=== PATIENT | male | born 1945 | race Caucasian/White ===

== ENCOUNTER 2025-10-10 15:58 | Emergency (ER) | payer BC, SELFPAY ==
[2025-10-10] VITALS (8 sets, daily range): BP systolic 123–149; BP diastolic 75–91; BMI 25.2
[2025-10-10 16:44] LABS: Hematocrit 39.7 % (39.0-52.0); Hemoglobin 13.1 g/dL (13.0-18.0); Mean Corp Hgb Conc. 33.0 g/dL (33.0-37.0); Mean Corpuscular Volume 73.4 fL (80.0-94.0); Nucleated Red Blood Cells % 0 % (-); Platelet Count 254 10^3/uL (130-400); Red Cell Dist. Width 17.8 % (11.5-14.5)
[2025-10-10 16:56] LABS: Blood Urea Nitrogen 31 mg/dl (9-20); Calcium 7.3 mg/dl (8.4-10.2); Carbon Dioxide 22 mmol/L (22-30); Chloride 100 mmol/L (98-107); Estimated Creatinine Clearance 81 ml/min; Glucose 115 mg/dl (70-99); Sodium 134 mmol/L (135-145); eGFR > 60.00
--- NOTE | 2025-10-10 17:31 | ED.GENMED ---
History of Present Illness
<Foster Gill PA-C - Last Filed: 10/10/25 21:15>
General
Chief Complaint: Weakness
Source: patient
Exam Limitations: none
Time Seen by Provider: 10/10/25 17:11
History of Present Illness
History of Present Illness:
79-year-old male presents with generalized weakness. 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 He was receiving a treatment at [facility]. 2 days ago, he had a left lung thoracentesis of which 2 L was drained from his lung. He
was due to have the right lung drained this coming Wednesday. He was at home and fell and spent the night on the floor. Family was there and could not get him off the floor. He complains of mid back pain from a different fall earlier this week. He
does not take anticoagulants. He does not think he hit his head. His main complaint is generalized weakness and thirst.
Phy Exam
<Foster Gill PA-C - Last Filed: 10/10/25 21:15>
Physical Exam
Physical Exam:
General: Well-appearing male no acute respiratory distress HEENT: Normal cephalic atraumatic heart: Tachycardic but regular
Lungs: Clear no wheeze
Abdomen is soft nontender
Musculoskeletal exam: Mild tenderness about the mid back
Extremities: No cyanosis or edema
Skin: Dry patches of skin over the feet and lower legs. Abrasion noted to the anterior left knee.
Course
<Foster Gill PA-C - Last Filed: 10/10/25 21:15>
Orders/Labs/Results
Orders:
Orders
10/10/25
Comprehensive Metabolic Panel Urgent
Urinalysis Reflex To Culture Urgent
Date Specimen was Collected: 10/10/25
Time Specimen was Collected: 17:29
Urine Microscopic Reflex Cult Urgent
Urine Culture Urgent
YVONNE Source: U
Specimen Description:
Date Specimen was Collected: 10/10/25
Time Specimen was Collected: 17:29
10/10/25 16:02
EKG [Electrocardiogram (*1)] Urgent
Reason for Study: Tachycardia
EKG- Treatment ONCE
10/10/25 16:29
Basic Metabolic Panel Urgent
Complete Blood Count/With Diff Urgent
Creatine [Creatine Phosphokinase] Urgent
10/10/25 17:24
CT Chest W/o Iv Contrast Urgent
Comment:
Reason For Exam: fall, mid back pain, h/o lung CA, effusions
0.9% Sodium Chloride 1000 ml [Nss] 1,000 ml IV BOLUS
10/10/25 17:25
CT Head W/o Iv Contrast Urgent
Comment:
Reason For Exam: fall
10/10/25 20:49
CT Cervical Spine W/o Iv Contr Urgent
Comment:
Reason For Exam: fall
Abnormal Lab Results
10/10/25 10/10/25
16:29 Unknown
MCV 73.4 L fL
(80.0-94.0)
MCH 24.2 L pg
(27.0-31.0)
RDW 17.8 H %
(11.5-14.5)
Abs Immat Gran (auto) 0.1 H 10^3/uL
(0-0.05)
Absolute Neuts (auto) 8.0 H 10^3/uL
(1.4-6.5)
Absolute Lymphs (auto) 0.7 L 10^3/uL
(1.2-3.4)
Absolute Monos (auto) 1.1 H 10^3/uL
(0.1-0.6)
Immature Gran % 0.6 H %
(0-0.5)
Neutrophils % 81.6 H %
(42.2-75.2)
Lymphocytes % 6.7 L %
(20.5-51.1)
Monocytes % 10.8 H %
(1.7-9.3)
Sodium 134 L mmol/L 134 L mmol/L
(135-145) (135-145)
Carbon Dioxide 21 L mmol/L
(22-30)
BUN 31 H mg/dl 30 H mg/dl
(9-20) (9-20)
Glucose 115 H mg/dl 111 H mg/dl
(70-99) (70-99)
Calcium 7.3 L mg/dl 7.4 L mg/dl
(8.4-10.2) (8.4-10.2)
Creatine Kinase 1087 H U/L
(55-170)
Urine Ketones 3+ A
(Negative)
Urine Bacteria (Reflex) Moderate A
(Negative)
Urine Albumin (Reflex) 3+ A
(Neg - Trace)
10/10/25 16:29
10/10/25 Unknown
Vital Signs
Initial and Last Documented VS:
Initial Vital Signs
Pulse Resp BP
116 17 147/91
10/10/25 16:02 10/10/25 16:02 10/10/25 16:02
Last Documented Vital Signs
Temp Pulse Resp BP Pulse Ox
99.8 F 98 23 132/85 98
10/10/25 16:03 10/10/25 20:51 10/10/25 20:51 10/10/25 20:51 10/10/25 20:30
<Satya Patterson MD - Last Filed: 10/10/25 20:57>
Orders/Labs/Results
Orders:
Orders
10/10/25
Comprehensive Metabolic Panel Urgent
Urinalysis Reflex To Culture Urgent
Date Specimen was Collected: 10/10/25
Time Specimen was Collected: 17:29
Urine Microscopic Reflex Cult Urgent
Urine Culture Urgent
YVONNE Source: U
Specimen Description:
Date Specimen was Collected: 10/10/25
Time Specimen was Collected: 17:
10/10/25 16:02
EKG [Electrocardiogram (*1)] Urgent
Reason for Study: Tachycardia
EKG- Treatment ONCE
10/10/25 16:29
Basic Metabolic Panel Urgent
Complete Blood Count/With Diff Urgent
Creatine [Creatine Phosphokinase] Urgent
10/10/25 17:24
CT Chest W/o Iv Contrast Urgent
Comment:
Reason For Exam: fall, mid back pain, h/o lung CA, effusions
0.9% Sodium Chloride 1000 ml [Nss] 1,000 ml IV BOLUS
10/10/25 17:25
CT Head W/o Iv Contrast Urgent
Comment:
Reason For Exam: fall
10/10/25 20:49
CT Cervical Spine W/o Iv Contr Urgent
Comment:
Reason For Exam: fall
Abnormal Lab Results
10/10/25 10/10/25
16:29 Unknown
MCV 73.4 L fL
(80.0-94.0)
MCH 24.2 L pg
(27.0-31.0)
RDW 17.8 H %
(11.5-14.5)
Abs Immat Gran (auto) 0.1 H 10^3/uL
(0-0.05)
Absolute Neuts (auto) 8.0 H 10^3/uL
(1.4-6.5)
Absolute Lymphs (auto) 0.7 L 10^3/uL
(1.2-3.4)
Absolute Monos (auto) 1.1 H 10^3/uL
(0.1-0.6)
Immature Gran % 0.6 H %
(0-0.5)
Neutrophils % 81.6 H %
(42.2-75.2)
Lymphocytes % 6.7 L %
(20.5-51.1)
Monocytes % 10.8 H %
(1.7-9.3)
Sodium 134 L mmol/L 134 L mmol/L
(135-145) (135-145)
Carbon Dioxide 21 L mmol/L
(22-30)
BUN 31 H mg/dl 30 H mg/dl
(9-20) (9-20)
Glucose 115 H mg/dl 111 H mg/dl
(70-99) (70-99)
Calcium 7.3 L mg/dl 7.4 L mg/dl
(8.4-10.2) (8.4-10.2)
Creatine Kinase 1087 H U/L
(55-170)
Urine Ketones 3+ A
(Negative)
Urine Bacteria (Reflex) Moderate A
(Negative)
Urine Albumin (Reflex) 3+ A
(Neg - Trace)
10/10/25 16:29
10/10/25 Unknown
Vital Signs
Initial and Last Documented VS:
Initial Vital Signs
Pulse Resp BP
116 17 147/91
10/10/25 16:02 10/10/25 16:02 10/10/25 16:02
Last Documented Vital Signs
Temp Pulse Resp BP Pulse Ox
99.8 F 98 23 132/85 98
10/10/25 16:03 10/10/25 20:51 10/10/25 20:51 10/10/25 20:51 10/10/25 20:30
Sherrylt;Foster Gill PA-C - Last Filed: 10/10/25 21:15>
MDM/Problems Addressed
Differential Diagnosis Includes:
Patient fell out of bed and has been on the floor all night and complains of generalized weakness. History of lung cancer recent thoracentesis. He is in the middle of chemotherapy. Suspect volume depletion or dehydration. Concern for possible
rhabdomyolysis given the prolonged downtime on the floor. CT of the head and chest ordered. Will hydrate and check labs
<Foster Gill PA-C - Last Filed: 10/10/25 21:15>
*Pulse Oximetry
SaO2: 98
Oxygen Mode of Delivery: Room air
Patient hypoxic: no
*Critical Care Note
Total Time (30-74mins, 75-104mins- exclusive of procedures): Not Applicable
<Foster Gill PA-C - Last Filed: 10/10/25 21:15>
Update Note
Update Note:
CT of the head demonstrates right frontal skull fracture with associated bifrontal intraparenchymal hemorrhages and chronic bilateral subdural hematomas. Will send patient back for CT of cervical spine. Discussed results with family and patient.
Will initiate transfer process to [facility]. He is not on any anticoagulants or antiplatelet agents.
ED Attending Note
<Foster Gill PA-C - Last Filed: 10/10/25 21:15>
-
Portions of this chart may have been created with voice recognition software.� Occasional wrong word or��sound alike� substitutions may have occurred due to the inherent limitations of voice recognition software.
<Satya Patterson MD - Last Filed: 10/10/25 20:57>
ED Attending Note
Patient seen and examined by attending physician: Yes
I performed the substantive portion of visit, reviewed & personally made and approve the management plan that is documented in note by myself or ANILA.: Yes
ED Attending Note:
79-year-old male currently followed at [facility] for metastatic lung CA. Recent thoracentesis. On chemotherapy. Was on the floor this morning. Apparently rolled out of bed. Does not recall the event. No specific complaints. Cannot get up from the
floor. Came in by a nose. On exam.
Nontoxic. Fully awake and alert. Some abrasions to the knees and pressure areas. Chronic rash. No chest wall tenderness. Lungs clear and equal. Heart regular rate and rhythm. Abdomen nontender. No obvious scalp trauma.
Impression: Skull fracture, bilateral frontal subarachnoid's. Left frontal intraparenchymal. Warrants transfer to a trauma center. Will send back for cervical spine. Start transfer process.
Discharge Plan
Departure
Patient Disposition: Acute Care Hospital
Date of Disposition: 10/10/25
Time of Disposition: 21:15
Patient with high blood pressure during this ER visit?: No
Discharge Problem:
Bleeding in brain
Prescriptions:
No Action
allopurinol 300 mg Tablet
300 mg PO DAILY
levothyroxine [Synthroid] 75 mcg Tablet
75 mcg PO DAILY
folic acid 1 mg Tablet
1 mg PO DAILY
olmesartan [Benicar] 5 mg Tablet
5 mg PO DAILY
Keytruda 25 mg/mL Solution
200 mg IV Q4W
dexamethasone 4 mg Tablet
4 mg PO DIRECTED
Rx Instructions:
take 2 tablet the day before, day of and day after chemo
carboplatin [Paraplatin] 150 mg Recon Soln
1,050 mg IV Q4W
pemetrexed disodium 25 mg/mL Solution
25 mg IV Q4W
Voquezna 10 mg Tablet
10 mg PO DAILY
Referrals:
Murphy Begum DO [Family Provider, Family Practice]
Hospital Transfer
Other hospital: [facility]
I certify that the patient requires transfer: Yes
Discussed case with accepting physician: Dr. Calle
Reason for transfer: higher level of care and specialties available
Interventions
Interventions:
*Risk Screen - Suicide Last Done: 10/10/25 16:08
*General Assessment Last Done: 10/10/25 18:36
*Neglect/Abuse Screening Last Done: 10/10/25 16:08
*ED- Fall Risk Assessment Last Done: 10/10/25 18:36
*ED COVID-19 Vaccine History Last Done: 10/10/25 16:08
*ED Influenza Vaccine History Last Done: 10/10/25 16:08
ED- Cardiac Assessment Last Done: 10/10/25 16:39
ED- Neurological Assessment Last Done: 10/10/25 20:30
ED- Pulmonary Assessment Last Done: 10/10/25 18:36
Discharge Date and Time
Print Language: POLISH
[2025-10-10] MEDS: NSS 1000 IV (17:37)
[2025-10-10 17:47] LABS: Urine Character Clear (Clear)
[2025-10-10 17:59] LABS: Urine Red Blood Cell 0-2 /HPF (0-2); Urine Squamous Cell 0-2 /LPF (Few); Urine White Cell 0-2 /HPF (0-5)
[2025-10-10 18:11] LABS: ALT (SGPT) 37 U/L (0-50); AST (SGOT) 46 U/L (17-59); Albumin 4.0 g/dl (3.5-5.0); Alkaline Phosphatase 101 U/L (38-126); Blood Urea Nitrogen 30 mg/dl (9-20); Calcium 7.4 mg/dl (8.4-10.2); Carbon Dioxide 21 mmol/L (22-30); Chloride 101 mmol/L (98-107); Estimated Creatinine Clearance 93 ml/min; Glucose 111 mg/dl (70-99); Potassium 4.4 mmol/L (3.5-5.1); Sodium 134 mmol/L (135-145); Total Protein 6.7 g/dl (6.3-8.2); eGFR > 60.00
== END 2025-10-10 21:59 | disposition short-term general hospital (02) ==
LOC: EMR 15:58
PROVIDERS: Emergency Medicine; Physician Assistant; EMERGENCY PHYSICIAN Emergency Medicine; FAMILY PHYSICIAN Family Medicine Sports Medicine
DX: S06.6XAA Traumatic subarachnoid hemorrhage with loss of consciousness status unknown, initial encounter (principal); S06.36AA Traumatic hemorrhage of cerebrum, unspecified, with loss of consciousness status unknown, initial encounter; S02.91XA Unspecified fracture of skull, initial encounter for closed fracture; S80.212A Abrasion, left knee, initial encounter; S80.211A Abrasion, right knee, initial encounter; W06.XXXA Fall from bed, initial encounter; C34.90 Malignant neoplasm of unspecified part of unspecified bronchus or lung; C79.31 Secondary malignant neoplasm of brain; Z79.60 Long term (current) use of unspecified immunomodulators and immunosuppressants
CPT/HCPCS: 99285; 96360; 70450; 71250; 72125; 80048; 80053; 81003; 81015; 82550; 85025; 87086; 93005